=== PATIENT | female | born 1990 | race Caucasian/White ===

== ENCOUNTER 2024-03-21 08:54 | Emergency (ER) | payer OTHER ==
[~2024-03-21] VITALS: Ht 162.6 cm; Wt 79.5 kg
[2024-03-21 10:11] LABS: STREP A SCREEN NEGATIVE (Neg)
[2024-03-21] MEDS ORDERED: AMOX500C2 PO (11:12)
[2024-03-21 11:32] VITALS: BP 139/98; PULSE 91; RESP 16; O2SAT 98
[2024-03-21] MEDS: amoxicillin 250mg capsule PO ONE (11:35)
== END 2024-03-21 11:30 | disposition home or self-care (01) ==
LOC: ER 08:55
DX: J02.9 Acute pharyngitis, unspecified (principal); J04.0 Acute laryngitis; R22.1 Localized swelling, mass and lump, neck; Z20.822 Contact with and (suspected) exposure to COVID-19
CPT/HCPCS: 36415; 87081; 87811; 87880; 99283